=== PATIENT | female | born 1985 | race Caucasian/White ===

== ENCOUNTER 2017-06-15 13:29 | Emergency (ER) | payer BC, MEDICAID ==
[~2017-06-15] VITALS: Ht 172.7 cm; Wt 92.3 kg
[~2017-06-15 13:29] MED LIST: DOCU-131 PO; HYDR-3237 PO; IBUP-1222 PO; METH10OR PO; METH10SY PO; PREN1TAB27 PO
[2017-06-15 14:20] LABS: HEMATOCRIT 37.8 % (34.6-47.8); HEMOGLOBIN 12.9 g/dL (11.7-16.4); WHITE BLOOD COUNT 9.4 x10^3/uL (3.4-10)
[2017-06-15 16:05] VITALS: BP 96/56
== END 2017-06-15 16:34 | disposition home or self-care (01) ==
LOC: ED 16:25
DX: O20.0 Threatened abortion (principal); Z3A.10 10 weeks gestation of pregnancy
CPT/HCPCS: 36415; 76801; 81003; 84702; 85025; 86850; 86900; 96372; 99285; J2790; 90384

== ENCOUNTER 2017-12-19 12:53 | Outpatient (CLI) | payer BC, MEDICAID ==
[~2017-12-19] VITALS: Ht 172.7 cm; Wt 105.4 kg
[2017-12-19 13:24] LABS: MICROSCOPIC NOT IND
[2017-12-19 13:55] LABS: BASOPHILS # (AUTO) 0.02 x10^3/uL (0-0.1); BASOPHILS % (AUTO) 0 % (0-1); EOSINOPHILS # (AUTO) 0.14 x10^3/uL (0-0.4); EOSINOPHILS % (AUTO) 2 % (1-7); LYMPHOCYTES # (AUTO) 1.68 x10^3/uL (1-3.4); LYMPHOCYTES % (AUTO) 18 % (22-44); MD NO; MEAN CORPUSCULAR HEMOGLOBIN 30.1 pg (27.0-34.8); MEAN CORPUSCULAR HGB CONC 33.1 g/dL (32.4-35.8); MEAN CORPUSCULAR VOLUME 90.9 fL (80-100); MEAN PLATELET VOLUME 7.6 fL (7.4-10.4); MONOCYTES # (AUTO) 0.65 x10^3/uL (0.2-0.8); MONOCYTES % (AUTO) 7 % (2-9); NEUTROPHILS # (AUTO) 7.04 x10^3/uL (1.8-6.8); NEUTROPHILS % (AUTO) 74 % (42-75); PLATELET COUNT 263 x10^3/uL (130-400); RED CELL DISTRIBUTION WIDTH 12.9 % (9.6-15.2)
[2017-12-19 14:08] LABS: ALBUMIN 2.7 g/dL (3.4-5.0); ANION GAP 9 mmol/L (5-15); CALCIUM 8.1 mg/dL (8.5-10.1); CHLORIDE 111 mmol/L (98-107)
[2017-12-19 14:15] LABS: CREATININE,URINE RANDOM 89.2 mg/dL
[2017-12-19 14:22] LABS: ALANINE AMINOTRANSFERASE 18 U/L (12-78); ALKALINE PHOSPHATASE 84 U/L (45-117); BILIRUBIN,TOTAL 0.2 mg/dL (0.2-1.0); CREATININE 0.78 mg/dL (0.55-1.02); TOTAL PROTEIN 6.3 g/dL (6.4-8.2)
[2017-12-19 14:25] LABS: BILIRUBIN, DIRECT < 0.1 mg/dL (0.1-0.2)
== END 2017-12-19 14:45 | disposition home or self-care (01) ==
LOC: LDOP 12:53
PROVIDERS: ATTEND Obstetrics & Gynecology
DX: O13.3 Gestational [pregnancy-induced] hypertension without significant proteinuria, third trimester (principal); Z3A.37 37 weeks gestation of pregnancy
CPT/HCPCS: 36415; 59025; 80053; 81003; 82248; 82570; 84156; 84550; 85025; 99211; G0463